=== PATIENT | female | born 1955 | race Caucasian/White ===

== ENCOUNTER 2018-06-14 15:11 | Emergency (ER) | payer OTHER ==
--- NOTE | 2018-06-14 15:20 | PDOC ---
History of Present Illness - General Stated Complaint: STROKE Time Seen by Provider: 06/14/18 15:16 History Source: Patient Exam Limitations: No Limitations - History of Present Illness Initial Comments: 06/14/18 15:16 63 year old male with PMH colon cancer was receiving chemotherapy around 1300 today and experienced slurring of her words. Pt reported the slurring of her words has been coming and going since then. Pt denied weakness, numbness, tingling, chest pain, shortness of breath. Pt was diagnosed with colon cancer , started chemo 04/2018. Allergies: NKDA Onc: Dr. Espinoza PCP: Rox NIH Stroke Scale - Last Known Well Date/Time & Onset Date Last Known Well: 06/14/18 Time Last Known Well: 13:00 - Initial Evaluation Level of consciousness: Alert Ask patient the month and their age: Answers both correctly Ask patient to open & close eyes; make fist and let go: Obeys both correctly Best gaze (horizontal eye movement): Normal Visual field testing: No visual field loss Facial paresis (Show teeth/raise eyebrows/close eyes tight): Normal symmetrical movement Motor Function: Left Arm: Normal Motor Function: Right Arm: Normal (extends arm 90 (or 45) degrees for 10 seconds without drift Motor Function: Left Leg: Normal (extends leg 30 degrees for 5 seconds without drift) Motor Function: Right Leg: Normal (extends leg 30 degrees for 5 seconds without drift) Limb Ataxia: No ataxia Sensory(Use pinprick test arms,legs,trunk,face/side to side): Normal Best language (Describe picture, name items, read sentences): No Aphasia Dysarthria (read several words): Normal articulation Extinction and Inattention: No abnormality - Total Score NIH Stroke Scale Score: 0 Past History - Past Medical History Allergies/Adverse Reactions: Allergies Allergy/AdvReac Type Severity Reaction Status Date / Time pollen extracts Allergy Verified 06/14/18 15:51 meperidine [From Demerol] AdvReac Verified 06/14/18 15:50 Home Medications: Ambulatory Orders Aspirin/Acetaminophen/Caffeine [Excedrin Extra Strength Caplet] 1 each PO DAILY PRN 06/14/18 Biotin 1 mg PO DAILY 06/14/18 Cyanocobalamin (Vitamin B-12) [Vitamin B12] 2,500 mcg PO DAILY 06/14/18 Diphenhydramine [Benadryl -] 50 mg PO DAILY PRN 06/14/18 Multivitamin [One-Daily Multi-Vitamin] 1 each PO DAILY 06/14/18 COPD: No - Suicide/Smoking/Psychosocial Hx Smoking History: Never smoked Review of Systems - Review of Systems Able to Perform ROS?: Yes Comments:: 06/14/18 15:18 General: denied fever, chills, generalized weakness. HEENT: denied sore throat, rhinorrhea, ear pain. Heart: denied chest pain, palpitations, syncope, diaphoresis. Respiratory: denied shortness of breath, cough, sputum production, hemoptysis. Abdomen: denied abdominal pain, nausea, vomiting, diarrhea, constipation, blood in stool. : denied dysuria, increased urinary frequency, hematuria, urinary incontinence , flank pain. Back: denied back pain. Musculoskeletal: denied joint pain, muscle pain, joint swelling. Neurological: admitted to [facility]. denied headache, dizziness, numbness, tingling, weakness. Skin: denied rash, laceration, abrasion. *Physical Exam - Physical Exam Comments: 06/14/18 15:18 Constitutional: Well-nourished, Well-developed, appearing stated age. HEENT: head is normocephalic, atraumatic. EOMI. PERRLA. Neck: supple. Full ROM. Heart: regular rhythm. no murmurs, rubs or gallops. Lungs: clear to auscultation bilaterally. no crackles, rhonchi or wheezing. no stridor. Abdomen: soft, nontender. normal bowel sounds. no rebound, guarding, masses. Extremities: peripheral pulses intact. no lower extremity edema. Neurological: alert. oriented x3. CN2-12 intact. 5/5 strength all extremities. normal ankle plantar flexion bilaterally. full sensation all extremities and bilateral face. gait not observed. Psych: awake, alert, oriented x3. follows commands. answers questions appropriately. ED Treatment Course - LABORATORY CBC & Chemistry Diagram: 06/14/18 15:40 06/14/18 15:21 Medical Decision Making - Medical Decision Making 06/14/18 15:19 63 year old female with PMH colon cancer brought to ED via ambulance for slurring of words since 1300 today while pt was receiving chemotherapy. Pt reported her symptoms have been intermittent. Initial Vital Signs Temp Pulse Resp BP Pulse Ox 98.4 F 102 H 18 169/83 98 06/14/18 15:19 04 15:19 06/14/18 15:19 06/14/18 15:19 06/14/18 15:19 Afebrile. Tachycardic. No tachypnea. Hypertensive. No hypoxia on room air. Transient symptoms, will not give TPA. 06/14/18 16:10 CT head report: mild volume loss. no gross evidence fo a focal intracranial lesion orhemorrhage is seen,. CBC WBC 2.0 K/mm3 (4.0-10.0) L 06/14/18 15:40 RBC 4.15 M/mm3 (3.60-5.2) 06/14/18 15:40 Hgb 11.2 GM/dL (10.7-15.3) 06/14/18 15:40 Hct 34.7 % (32.4-45.2) D 06/14/18 15:40 MCV 83.4 fl (80-96) 06/14/18 15:40 MCH 27.0 pg (25.7-33.7) 06/14/18 15:40 MCHC 32.4 g/dl (32.0-36.0) 06/14/18 15:40 RDW 19.4 % (11.6-15.6) H 06/14/18 15:40 Plt Count 148 K/MM3 (134-434) D 06/14/18 15:40 MPV 7.8 fl (7.5-11.1) 06/14/18 15:40 Absolute Neuts (auto) 1.7 K/mm3 (1.5-8.0) 06/14/18 15:40 Neutrophils % 84.3 % (42.8-82.8) H 06/14/18 15:40 Lymphocytes % 12.8 % (8-40) D 06/14/18 15:40 Monocytes % 2.6 % (3.8-10.2) L 06/14/18 15:40 Eosinophils % 0.0 % (0-4.5) D 06/14/18 15:40 Basophils % 0.3 % (0-2.0) 06/14/18 15:40 Nucleated RBC % 0 % (0-0) 06/14/18 15:40 Leukopenia. Neutropenia. 06/14/18 16:32 CMP Sodium 145 mmol/L (136-145) 06/14/18 15:21 Potassium 3.5 mmol/L (3.5-5.1) 06/14/18 15:21 Chloride 110 mmol/L (98-107) H 06/14/18 15:21 Carbon Dioxide 26 mmol/L (21-32) 06/14/18 15:21 Anion Gap 9 MMOL/L (8-16) 06/14/18 15:21 BUN 13 mg/dL (7-18) 06/14/18 15:21 Creatinine 0.8 mg/dL (0.55-1.3) 06/14/18 15:21 Creat Clearance w eGFR 72.21 (>60) 06/14/18 15:21 Random Glucose 135 mg/dL (74-106) H 06/14/18 15:21 Calcium 8.7 mg/dL (8.5-10.1) 06/14/18 15:21 Total Bilirubin 0.5 mg/dL (0.2-1) 06/14/18 15:21 AST 96 U/L (15-37) H 06/14/18 15:21 ALT 141 U/L (13-61) H 06/14/18 15:21 Alkaline Phosphatase 115 U/L (45-117) 06/14/18 15:21 Creatine Kinase 87 U/L (26-192) 06/14/18 15:21 Troponin I < 0.02 ng/ml (0.00-0.05) 06/14/18 15: Total Protein 6.7 g/dl (6.4-8.2) 06/14/18 15:21 Albumin 3.6 g/dl (3.4-5.0) 06/14/18 15:21 Triglycerides 66 mg/dL (0-150) 06/14/18 15:21 Cholesterol 187 mg/dL (50-200) 06/14/18 15:21 Total LDL Cholesterol 81 mg/dL (5-100) 06/14/18 15:21 HDL Cholesterol 94 mg/dL (40-60) H 06/14/18 15:21 No electrolyte abnormalities. No ROSS. Transaminitis. Normal troponin. Normal lipids. Elevated HDL. 06/14/18 16:54 Urine Test Results Urine Color Yellow 06/14/18 15:40 Urine Appearance Clear 06/14/18 15:40 Urine pH 6.0 (5.0-8.0) 06/14/18 15:40 Ur Specific [place] 1.004 (1.010-1.035) L 06/14/18 15:40 Urine Protein Negative (NEGATIVE) 06/14/18 15:40 Urine Glucose (UA) Negative (NEGATIVE) 06/14/18 15:40 Urine Ketones Negative (NEGATIVE) 06/14/18 15:40 Urine Blood Negative (NEGATIVE) 06/14/18 15:40 Urine Nitrite Negative (NEGATIVE) 06/14/18 15:40 Urine Bilirubin Negative (NEGATIVE) 06/14/18 15:40 Ur Leukocyte Esterase Negative (NEGATIVE) 06/14/18 15:40 No UTI. 06/14/18 17:[address] Singh about the patient, who recommended discharge in the setting of symptoms occurring with chemo, minimal past medical history and no recurrence of symptoms. He requests outpatient follow up. Pt informed to follow up with Dr. Singh, she stated she wanted to check if [facility] has a neurologist she can see. Referral for [place] provided. Pt sitting up in bed, using her laptop computer, alert and oriented, 5/5 strength all extremities, full sensation throughout, normal ankle plantar flexion bilaterally, EOMI, PERRLA. Pt discharged. *DC/Admit/Observation/Transfer Diagnosis at time of Disposition: Slurring of speech - Discharge Dispostion Disposition: HOME Condition at time of disposition: Improved Decision to Admit order: No - Referrals Referrals: Rubén Singh MD [Staff Physician] - - Patient Instructions Printed Discharge Instructions: DI for Chemotherapy -- Adult Additional Instructions: You were seen today for slurring of words. Your lab work was normal. Your urine analysis was normal. Your head CatScan was normal. I spoke with our Neurologist Dr. Singh, who advised outpatient follow up in his office. I have provided you with a referral. Call his office tomorrow morning and make an appointment for as soon as available. Follow up with your Primary Care Doctor in 1-2 days. Follow up with your Oncologist in 1-2 days. Bring the paperwork given to you today to all of your appointments. Return to the Emergency Department for weakness, numbness, slurring of words, severe headache, chest pain, shortness of breath, fever, neck stiffness or any other new, worsening or concerning symptoms. - Post Discharge Activity
[2018-06-14 15:22] VITALS: TEMP 98.4; BMI 21.6
[2018-06-14] MEDS ORDERED: SODIUM CHLORIDE 1,000 ML IV SCH (15:30)
[2018-06-14 15:57] LABS: BASO % 0.3 % (0-2.0); HEMATOCRIT 34.7 % (32.4-45.2); HEMOGLOBIN 11.2 GM/dL (10.7-15.3); LYMPH % 12.8 % (8-40); MCHC 32.4 g/dl (32.0-36.0); MEAN CELL VOLUME 83.4 fl (80-96); MEAN PLT VOLUME 7.8 fl (7.5-11.1); MONO % 2.6 % (3.8-10.2); NEUT % 84.3 % (42.8-82.8); PLATELET COUNT 148 K/MM3 (134-434); RBC 4.15 M/mm3 (3.60-5.2); RDW 19.4 % (11.6-15.6)
[2018-06-14 16:14] LABS: INR 1.02 (0.83-1.09)
[2018-06-14 16:24] LABS: URINE APPEARANCE CLEAR; URINE BILIRUBIN NEGATIVE (NEGATIVE); URINE COLOR YELLOW; URINE GLUCOSE (UA) NEGATIVE (NEGATIVE); URINE KETONE NEGATIVE (NEGATIVE); URINE LEUK ESTERASE NEGATIVE (NEGATIVE); URINE NITRITE NEGATIVE (NEGATIVE); URINE PROTEIN NEGATIVE (NEGATIVE); URINE UROBILINOGEN 0.2 mg/dL (0.2-1.0)
[2018-06-14 16:24] LABS: ALBUMIN 3.6 g/dl (3.4-5.0); ALK PHOS 115 U/L (45-117); ANION GAP 9 MMOL/L (8-16); BILIRUBIN,TOTAL 0.5 mg/dL (0.2-1); BLOOD UREA NITROGEN 13 mg/dL (7-18); CALCIUM 8.7 mg/dL (8.5-10.1); CHLORIDE 110 mmol/L (98-107); CHOLESTEROL 187 mg/dL (50-200); CO2 26 mmol/L (21-32); CREATININE 0.8 mg/dL (0.55-1.3); GLUCOSE,RANDOM 135 mg/dL (74-106); HDL CHOLESTEROL 94 mg/dL (40-60); POTASSIUM 3.5 mmol/L (3.5-5.1); SGOT/AST 96 U/L (15-37); SGPT/ALT 141 U/L (13-61); SODIUM 145 mmol/L (136-145); TOT PROT 6.7 g/dl (6.4-8.2); TRIGLYCERIDES 66 mg/dL (0-150)
--- NOTE | 2018-06-14 16:38 | PDOC ---
Documentation entered by Milagro Lombardi SCRIBE, acting as scribe for Flory Roca MD. Attending Attestation - Resident Resident Name: Lynn Olea - ED Attending Attestation I have performed the following: I have examined & evaluated the patient, The case was reviewed & discussed with the resident, I agree w/resident's findings & plan, Exceptions are as noted - HPI HPI: 06/14/18 16:09 The patient is a 63 year old male with a PMH of colon cancer diagnosed in March 2018 now on chemo since April who presents to the ER for intermittently slurring her speech since 1PM today. Denies any other symptoms at this time. The patient denies numbness, tingling, weakness, chest pain, shortness of breath , headache and dizziness. Denies fever, chills, nausea, vomit, diarrhea and constipation. Denies dysuria, frequency, urgency and hematuria. Allergies: NKDA Onc: Dr. Espinoza - Physicial Exam PE: GENERAL: Awake, alert, and fully oriented, in no acute distress HEAD: No signs of trauma EYES: PERRLA, EOMI, sclera anicteric, conjunctiva clear ENT: Auricles normal inspection, hearing grossly normal, nares patent, oropharynx clear without exudates. Moist mucosa NECK: Normal ROM, supple, no lymphadenopathy, JVD, or masses LUNGS: Breath sounds equal, clear to auscultation bilaterally. No wheezes, and no crackles HEART: Regular rate and rhythm, normal S1 and S2, no murmurs, rubs or gallops ABDOMEN: Soft, nontender, normoactive bowel sounds. No guarding, no rebound. No masses EXTREMITIES: Normal range of motion, no edema. No clubbing or cyanosis. No cords, erythema, or tenderness NEUROLOGICAL: Cranial nerves II through XII grossly intact. Normal speech, normal gait. Motor and sensation intact SKIN: Warm, Dry, normal turgor, no rashes or lesions noted. - Medical Decision Making Pt with slurred speech intermittently since 1:15, resolved upon arrival in ED. Malina cruz called. Patient is not a tPA candidate due to mild symptoms and rapidly improving symptoms. Will discuss with neuro. NIH Stroke Scale - Last Known Well Date/Time & Onset Date Last Known Well: 06/14/18 Time Last Known Well: 13:15 - Initial Evaluation Level of consciousness: Alert Ask patient the month and their age: Answers both correctly Ask patient to open & close eyes; make fist and let go: Obeys both correctly Best gaze (horizontal eye movement): Normal Visual field testing: No visual field loss Facial paresis (Show teeth/raise eyebrows/close eyes tight): Normal symmetrical movement Motor Function: Left Arm: Normal Motor Function: Right Arm: Normal (extends arm 90 (or 45) degrees for 10 seconds without drift Motor Function: Left Leg: Normal (extends leg 30 degrees for 5 seconds without drift) Motor Function: Right Leg: Normal (extends leg 30 degrees for 5 seconds without drift) Limb Ataxia: No ataxia Sensory(Use pinprick test arms,legs,trunk,face/side to side): Normal Best language (Describe picture, name items, read sentences): No Aphasia Dysarthria (read several words): Normal articulation Extinction and Inattention: No abnormality - Total Score NIH Stroke Scale Score: 0 Flory Roca MD: This documentation has been prepared by the Maria C medina Daisy, SCRIBE, under my direction and personally reviewed by me in its entirety. I confirm that the documentation accurately reflects all work, treatment, procedures, and medical decision making performed by me.
[2018-06-14 17:23] VITALS: BP 136/76; PULSE 89
--- NOTE | 2018-06-15 11:04 | EKG ---
Test Reason : Blood Pressure : / mmHG Vent. Rate : 096 BPM Atrial Rate : 096 BPM P-R Int : 148 ms QRS Dur : 072 ms QT Int : 376 ms P-R-T Axes : 068 012 036 degrees QTc Int : 475 ms NORMAL SINUS RHYTHM LOW VOLTAGE QRS NONSPECIFIC ST AND T WAVE ABNORMALITY ABNORMAL ECG NO PREVIOUS ECGS AVAILABLE Confirmed by MD Elis, Tacho ([id number]) on 06/15/2018 11:03:47 AM Referred By: Confirmed By:Tacho Gillis MD
== END 2018-06-14 17:32 | disposition home or self-care (01) ==
LOC: JER 15:11
DX: R47.81 Slurred speech (principal); C18.9 Malignant neoplasm of colon, unspecified
CPT/HCPCS: 36415; 70450-TC; 80053; 81003; 82465; 82550; 83718; 83721; 84478; 84484; 85025; 85610; 86850; 86900; 86901; 93005; 93010; 99284-25; J7030